=== PATIENT | female | born 2000 | race African-American/Black ===

== ENCOUNTER 2020-09-15 14:37 | Emergency (ER) | payer BC, SELFPAY ==
--- NOTE | ~2020-09-15 | CT_ITS ---
EXAMINATION: CT ABDOMEN AND PELVIS WITH CONTRAST CLINICAL INFORMATION: Right lower quadrant pain COMPARISON: None TECHNIQUE: Multidetector volumetric images were obtained from the superior aspect of the liver through the pubic symphysis following administration 85 mL of Omnipaque 350 intravenous contrast. Sagittal and coronal reformatted images were obtained on the technologist's workstation. Oral contrast: No This CT examination was performed using dose optimization techniques as appropriate, variously including the following: *Automated exposure control *Adjustment of mA and/or kV according to patient size (this includes techniques or standardized protocols for targeted exams where dose is matched to indication/reason for exam; i.e. extremities or head) *Use of iterative reconstruction technique DLP: 409 mGy-cm FINDINGS: LUNG BASES: The visualized lung bases are unremarkable. LIVER, GALLBLADDER, AND BILIARY TREE: The liver is normal in size, shape, and attenuation. 2 tiny hypodensity seen in the right lobe of the liver the largest measuring only 5 mm and measures water density consistent with a cyst. No worrisome focal hepatic lesion or biliary ductal dilatation is present. The gallbladder is unremarkable with no evidence of radiopaque gallstones, gallbladder wall thickening, or obvious pericholecystic inflammatory changes. PANCREAS: Unremarkable. SPLEEN: Unremarkable. ADRENAL GLANDS: Unremarkable. KIDNEYS AND URETERS: The kidneys are normal in size, shape, and attenuation. No hydronephrosis, hydroureter, or calculi seen. No perinephric stranding. BLADDER: Unremarkable. GASTROINTESTINAL TRACT: The small and large bowel are unremarkable. The appendix is unremarkable. ABDOMINAL WALL: No significant hernia is appreciated. LYMPH NODES: Normal. VASCULAR: Unremarkable. PELVIC VISCERA: A large cyst is present in the pelvis anterior to the uterus measuring 8.3 x 8.5 x 7.3 cm. A small amount of free intraperitoneal fluid is present. The uterus is pushed backwards by this large cyst. No inflammatory changes are seen around this to suggest a tubo-ovarian abscess. OSSEOUS STRUCTURES: Unremarkable. CT/CT abdomen pelvis w con IMPRESSION: The appendix is normal. Incidentally noted tiny hepatic cysts Large ovarian cyst. In premenopausal patients with cysts >7 cm in diameter, follow-up MRI is recommended. Recommend follow-up pelvic MRI with IV contrast or surgical evaluation (based on 2010 SRU Consensus Conference Statement on the Management of Asymptomatic Ovarian and Other Adnexal Cysts Imaged at [facility]: Radiology 2009;256(3):943-54).
[2020-09-15 16:32] VITALS: BP 113/75; PULSE 88; RESP 18; TEMP 37.1; O2SAT 100; BMI 26.9
[2020-09-15 17:05] LABS: MANUAL DIFF FLAG NO
[2020-09-15 17:10] LABS: Basophils Percent Auto 0.6 % (0-2); Hematocrit 38.2 % (37-47); Hemoglobin 12.4 g/dl (12.0-16.0); Imm Gran Abs Auto 0.01 X10*3/uL (0.00-0.03); Imm Gran Pct Auto 0.1 % (0.0-0.4); Lymphocytes Absolute Auto 0.9 X10*3/uL (1.2-4.9); Lymphocytes Percent Auto 12.6 % (20-40); Mean Corpuscular HGB Conc 32.5 g/dl (31.0-35.0); Mean Corpuscular Hemoglobin 27.2 pg (27.0-33.0); Mean Corpuscular Volume 83.8 fL (80-98); Mean Platelet Volume 10.1 fL (9.4-12.3); Monocytes Absolute Auto 0.4 X10*3/uL (0.1-1.2); Monocytes Percent Auto 5.9 % (2-11); Neutrophils Absolute Auto 5.8 X10*3/uL (2.0-8.3); Neutrophils Percent Auto 80.8 % (45-73); Platelet Count 332 X10*3/uL (160-400); Red Blood Count 4.56 X10*6/uL (4.20-5.50); Red Cell Distribution Width 13.7 % (11.0-16.0); White Blood Count 7.2 X10*3/uL (4.8-10.8)
[2020-09-15 17:13] LABS: Appearance Urine CLEAR; Color Urine YELLOW; Glucose Urine UA NEG (NEG); Leukocyte Esterase Urine NEG (NEG); Nitrite Urine NEG (NEG); Specific Gravity - Urine 1.025 (1.005-1.025); Urine Blood 3+ (NEG); Urine Ketones NEG (NEG); Urine Protein NEG (NEG-TRACE)
[2020-09-15 17:16] LABS: UPreg QC Valid YES; Urine Pregnancy NEGATIVE (NEGATIVE)
[2020-09-15 17:31] LABS: WBC Urine 0-2 /HPF (0-4)
[2020-09-15 17:32] LABS: RBC Urine 50-75 /HPF (0); Squamous Epithelial Cell Urine 1+ /LPF
[2020-09-15 17:51] LABS: Alanine Aminotransferase 19 U/L (0-31); Albumin Level 4.6 g/dL (3.5-5.0); Alkaline Phosphatase 54 U/L (39-117); Anion Gap 12 (12-20); Aspartate Amino Transferase 34 U/L (5-31); Bilirubin Total 0.7 mg/dL (0.0-1.0); Blood Urea Nitrogen 8 mg/dL (9-16); Calcium 9.4 mg/dL (8.4-10.2); Carbon Dioxide 26 mmol/L (22-29); Chloride 104 mmol/L (96-108); Creatinine Clr Calc Pharmacy 94.5; Estimated Glomerular Filt Rate > 60; Glucose Random 97 mg/dL (60-115); Lipase 21 U/L (8-78); Potassium 4.4 mmol/L (3.3-5.1); Sodium 138 mmol/L (135-145); Total Protein 7.7 g/dL (6.5-8.0)
--- NOTE | 2020-09-15 19:45 | ED_ITS ---
HPI - Abdominal Pain General Chief Complaint: Abdominal Pain Stated Complaint: pain on rt side ?appendicitis from dr office Time Seen by Provider: 09/15/20 18:51 Source: patient Mode of arrival: ambulatory Limitations: no limitations History of Present Illness HPI narrative: 20-year-old female with no significant past medical history presents with 1 day of 10/10 right lower quadrant abdominal pain with nausea and vomiting. She does not report any chest pain or pressure, palpitations, fevers, chills, abdominal distention, dysuria, hematuria, edema, trauma, vaginal discharge, abnormal vaginal bleeding, or any other concerning symptoms. MD elicited complaint: abdominal pain Onset (ago): day(s) (1) Pain Consistency: intermittent Location: RLQ and suprapubic Severity: severe Pain scale (0-10): 10 Quality: cramping, stabbing and aching Migration to: no migration Exacerbating factors: bowel movement, vomiting and movement Relieving factors: rest Associated symptoms: nausea and vomiting Treatments prior to arrival: NSAIDs Related Data Patient : No Previous Rx's Medication Instructions Recorded ibuprofen 600 mg PO Q6H PRN #60 tab 09/15/20 tramadol 50 mg PO BID PRN #5 tab 09/15/20 Allergies Allergy/AdvReac Type Severity Reaction Status Date / Time No Known Allergies Allergy Verified 09/15/20 16:32 Review of Systems Review of Systems Constitutional: No Weight loss, No Fever, No Chills, No Night Sweats, No F atigue, No Malaise ENT/Mouth: No Hearing loss, No Ear Pain, No Nasal Congestion, No Sinus Pain, No Hoarseness, No sore throat, No Rhinorrhea, No Swallowing Difficulty Eyes: No Eye Pain, No Swelling, No Redness, No Foreign Body, No Discharge, No Vision Changes Cardiovascular: No Chest Pain, No SOB, No Dyspnea on Exertion, No Orthopnea, No Edema, No Palpitations Respiratory: No Cough, No Sputum, No Wheezing, No Smoke Exposure, No Dyspnea Gastrointestinal: Positive Nausea, Positive Vomiting, positive abdominal Pain, No Hematochezia, No Melena Genitourinary: no irregular bleeding, No Dysuria, No Urinary Frequency, No Hematuria, No Urinary Incontinence, No Urgency, No Flank Pain, No Urinary Flow Changes, No Hesitancy Musculoskeletal: No joint pain, No Myalgias, No Joint Swelling Skin: No Skin Lesions, No rash Neuro: No Weakness, No Numbness, No Paresthesias, No Loss of Consciousness, No Dizziness, No Headache Psych: No Anxiety/Panic, No Depression, No SI/HI/AH/VH, No Social Issues Heme/Lymph: No Bruising, No Bleeding,No Lymphadenopathy Endocrine: No Polyuria, No Polydipsia, No Temperature Intolerance Yes all other systems are reviewed and are negative Physical Exam Vital Signs: Vital Signs: Last Vital Signs Temp 97.7 F 09/15/20 22:16 Pulse 76 09/15/20 22:16 Resp 20 09/15/20 22:16 BP 135/79 09/15/20 22:16 Pulse Ox 100 09/15/20 22:16 Body Mass Index 26.9 Appearance: Alert. Oriented X3. Mild distress. Eyes: Pupils equal, round and reactive to light. EOMI, sclera nonicteric ENT: Pharynx normal. Moist mucous membranes Neck: Normal inspection. Neck supple. No JVD CVS: Normal heart rate and rhythm. Pulses normal. Respiratory: No respiratory distress. Breath sounds normal. Abdomen: Soft and tender to palpation to the right lower left lower and suprapubic, no CVA tenderness. Skin: Skin warm and dry. Normal skin color. Normal skin turgor. Extremities: No lower extremity edema. Neuro: No motor deficit. No sensory deficit. Cranial nerves 2-12 intact, gait well-balanced well coordinated Course Course Course Narrative: 20-year-old female with no significant past medical history presents with 1 day of 10/10 abdominal pain accompanied with nausea and vomiting. Physical exam is positive for McBurney's, negative psoas, Rovsing and Mackay's. Tenderness to the suprapubic. Plan of care is for CT scan of the abdomen. CT scan shows large anterior to the uterus suspected ovarian cyst. Discussion with Dr. Nguyen the entire attacks, feels that this is an ovarian cyst and refer to trial court judge. Discussion with Dr. Magaña, patient is hemodynamically stable, can be managed as a surgical outpatient, and will be followed up in the office tomorrow. Detailed description with mother as well as patient regarding plan of care. Incidental findings of hepatic cysts discussed with both patient and mother. Patient verbalized understanding of and agrees to plan of care discharge home. Consultations Consultation #1: Mazzucco Time: 21:22 Consultation #2: Archana Time: 21:25 MDM - Abdominal Pain Differential Diagnosis Differential diagnosis: Likely abdominal pain, acute appendicitis, calculus of kidney, constipation, diverticulitis, endometriosis and ovarian cyst Medical Records Attestation: I reviewed the patient's medical records. Lab Data Attestation: I reviewed the patient's lab results. Result diagrams: 09/15/20 16:49 09/15/20 16:49 Labs: Lab Results 09/15/20 09/15/20 09/15/20 Range/Units 16:49 16:49 16:49 WBC 7.2 (4.8-10.8) X10*3/uL RBC 4.56 (4.20-5.50) X10*6/uL Hgb 12.4 (12.0-16.0) g/dl Hct 38.2 (37-47) % MCV 83.8 (80-98) fL MCH 27.2 (27.0-33.0) pg MCHC 32.5 (31.0-35.0) g/dl RDW 13.7 (11.0-16.0) % Plt Count 332 (160-400) X10*3/uL MPV 10.1 (9.4-12.3) fL Immature Gran % (Auto) 0.1 (0.0-0.4) % Neut % (Auto) 80.8 H (45-73) % Lymph % (Auto) 12.6 L (20-40) % [place] % (Auto) 5.9 (2-11) % Eos % (Auto) 0.0 (0-4) % Baso % (Auto) 0.6 (0-2) % Lymph # (Auto) 0.9 L (1.2-4.9) X10*3/uL [place] # (Auto) 0.4 (0.1-1.2) X10*3/uL Eos # (Auto) 0.0 (0.0-0.4) X10*3/uL Baso # (Auto) 0.0 (0.0-0.2) X10*3/uL Abs Immat Gran (auto) 0.01 (0.00-0.03) X10*3/uL Absolute Neuts (auto) 5.8 (2.0-8.3) X10*3/uL Absolute Nucleated RBC 0.000 (0.0-0.012) X10*3/uL Nucleated RBC % (auto) 0.0 (0.0-0.2) /100WBC Hold Blue Top SEE NOTE Sodium (135-145) mmol/L Potassium (3.3-5.1) mmol/L Chloride (96-108) mmol/L Carbon Dioxide (22-29) mmol/L Anion Gap (12-20) BUN (9-16) mg/dL Creatinine (0.5-1.4) mg/dL Estim Creat Clear Calc Estimated GFR Random Glucose (60-115) mg/dL Calcium (8.4-10.2) mg/dL Total Bilirubin (0.0-1.0) mg/dL AST (5-31) U/L ALT (0-31) U/L Alkaline Phosphatase (39-117) U/L Total Protein (6.5-8.0) g/dL Albumin (3.5-5.0) g/dL Lipase (8-78) U/L Urine Color YELLOW Urine Appearance CLEAR Urine pH 6.0 (5.0-8.0) Ur Specific [place] 1.025 (1.005-1.025) Urine Protein NEG (NEG-TRACE) MG/DL Urine Glucose (UA) NEG (NEG) MG/DL Urine Ketones NEG (NEG) MG/DL Urine Blood 3+ H (NEG) Urine Nitrite NEG (NEG) Ur Leukocyte Esterase NEG (NEG) Urine RBC 50-75 H (0) /HPF Urine WBC 0-2 (0-4) /HPF Ur Squamous Epith Cells 1+ /LPF Urine Bacteria NONE /LPF Urine Test (NEGATIVE) 09/15/20 09/15/20 Range/Units 16:49 16:49 WBC (4.8-10.8) X10*3/uL RBC (4.20-5.50) X10*6/uL Hgb (12.0-16.0) g/dl Hct (37-47) % MCV (80-98) fL MCH (27.0-33.0) pg MCHC (31.0-35.0) g/dl RDW (11.0-16.0) % Plt Count (160-400) X10*3/uL MPV (9.4-12.3) fL Immature Gran % (Auto) (0.0-0.4) % Neut % (Auto) (45-73) % Lymph % (Auto) (20-40) % [place] % (Auto) (2-11) % Eos % (Auto) (0-4) % Baso % (Auto) (0-2) % Lymph # (Auto) (1.2-4.9) X10*3/uL [place] # (Auto) (0.1-1.2) X10*3/uL Eos # (Auto) (0.0-0.4) X10*3/uL Baso # (Auto) (0.0-0.2) X10*3/uL Abs Immat Gran (auto) (0.00-0.03) X10*3/uL Absolute Neuts (auto) (2.0-8.3) X10*3/uL Absolute Nucleated RBC (0.0-0.012) X10*3/uL Nucleated RBC % (auto) (0.0-0.2) /100WBC Hold Blue Top Sodium 138 (135-145) mmol/L Potassium 4.4 (3.3-5.1) mmol/L Chloride 104 (96-108) mmol/L Carbon Dioxide 26 (22-29) mmol/L Anion Gap 12 (12-20) BUN 8 L (9-16) mg/dL Creatinine 0.85 (0.5-1.4) mg/dL Estim Creat Clear Calc 94.5 Estimated GFR > 60 Random Glucose 97 (60-115) mg/dL Calcium 9.4 (8.4-10.2) mg/dL Total Bilirubin 0.7 (0.0-1.0) mg/dL AST 34 H (5-31) U/L ALT 19 (0-31) U/L Alkaline Phosphatase 54 (39-117) U/L Total Protein 7.7 (6.5-8.0) g/dL Albumin 4.6 (3.5-5.0) g/dL Lipase 21 (8-78) U/L Urine Color Urine Appearance Urine pH (5.0-8.0) Ur Specific [place] (1.005-1.025) Urine Protein (NEG-TRACE) MG/DL Urine Glucose (UA) (NEG) MG/DL Urine Ketones (NEG) MG/DL Urine Blood (NEG) Urine Nitrite (NEG) Ur Leukocyte Esterase (NEG) Urine RBC (0) /HPF Urine WBC (0-4) /HPF Ur Squamous Epith Cells /LPF Urine Bacteria /LPF Urine Test NEGATIVE (NEGATIVE) Imaging Data CT scan - abdomen: Attestation: I personally reviewed and interpreted this imaging study as follows: Radiologist's impression: EXAMINATION: CT ABDOMEN AND PELVIS WITH CONTRAST CLINICAL INFORMATION: Right lower quadrant pain COMPARISON: None TECHNIQUE: Multidetector volumetric images were obtained from the superior aspect of the liver through the pubic symphysis following administration 85 mL of Omnipaque 350 intravenous contrast. Sagittal and coronal reformatted images were obtained on the technologist's workstation. Oral contrast: No This CT examination was performed using dose optimization techniques as appropriate, variously including the following: *Automated exposure control *Adjustment of mA and/or kV according to patient size (this includes techniques or standardized protocols for targeted exams where dose is matched to indication/reason for exam; i.e. extremities or head) *Use of iterative reconstruction technique DLP: 409 mGy-cm FINDINGS: LUNG BASES: The visualized lung bases are unremarkable. LIVER, GALLBLADDER, AND BILIARY TREE: The liver is normal in size, shape, and attenuation. 2 tiny hypodensity seen in the right lobe of the liver the largest measuring only 5 mm and measures water density consistent with a cyst. No worrisome focal hepatic lesion or biliary ductal dilatation is present. The gallbladder is unremarkable with no evidence of radiopaque gallstones, gallbladder wall thickening, or obvious pericholecystic inflammatory changes. PANCREAS: Unremarkable. SPLEEN: Unremarkable. ADRENAL GLANDS: Unremarkable. KIDNEYS AND URETERS: The kidneys are normal in size, shape, and attenuation. No hydronephrosis, hydroureter, or calculi seen. No perinephric stranding. BLADDER: Unremarkable. GASTROINTESTINAL TRACT: The small and large bowel are unremarkable. The appendix is unremarkable. ABDOMINAL WALL: No significant hernia is appreciated. LYMPH NODES: Normal. VASCULAR: Unremarkable. PELVIC VISCERA: A large cyst is present in the pelvis anterior to the uterus measuring 8.3 x 8.5 x 7.3 cm. A small amount of free intraperitoneal fluid is present. The uterus is pushed backwards by this large cyst. No inflammatory changes are seen around this to suggest a tubo-ovarian abscess. OSSEOUS STRUCTURES: Unremarkable. CT/CT abdomen pelvis w con IMPRESSION: The appendix is normal. Incidentally noted tiny hepatic cysts Large ovarian cyst. In premenopausal patients with cysts >7 cm in diameter, follow-up MRI is recommended. Recommend follow-up pelvic MRI with IV contrast or surgical evaluation (based on 2010 SRU Consensus Conference Statement on the Management of Asymptomatic Ovarian and Other Adnexal Cysts Imaged at [facility]: Radiology 2009;256(3):943-54). Discharge Plan Discharge Clinical Impression: Ovarian cyst Patient Disposition: Home, Self-Care Instructions: Ovarian Cyst (ED) Additional Instructions: You were evaluated for abdominal pain. CT scan of the abdomen shows a large ovarian cyst measuring 8.3 cm x 8.5 cm x 7.3 cm. I discussed her case with OBGYN on-call Dr. Magaña, please call her tomorrow for further workup. Incidental finding in the abdominal CT scan are hepatic cysts. Please follow-up with primary care as you may need to continue to monitor the cysts. Please take ibuprofen as needed for pain management. If ibuprofen is insufficient please use tramadol. Tramadol is a narcotic and has high risk for addiction and abuse. Do not drive or operate machinery while taking this medication. This medication may cause drowsiness, increased risk of falls and cause constipation. Drink plenty of fluids, use MiraLax and or Colace as needed to help soften stools. Thank you for choosing this emergency department for evaluation. Please fo llow-up with primary care physician as needed. Return to the emergency department for any new, concerning, or worsening symptoms. Prescriptions: New ibuprofen 600 mg tablet 600 mg PO Q6H PRN (Reason: pain) Qty: 60 RF: 0 tramadol 50 mg tablet 50 mg PO BID PRN (Reason: pain) Qty: 5 RF: 0 Referrals: Fiorella Magaña MD [Physician] - 2 days (large ovarian cyst) Interventions: ED Discharge Assessment Last Done: 09/15/20 22:26 Discharge Date/Time: 09/15/20 22:27 [facility] Past Medical History Attestation statement: The following information was validated with the patient. Source: old records reviewed Medical History Healthy female Social History Social History Advance Directives: No Advance Directives Information Provided: No
[2020-09-15 19:50] VITALS: BP 119/86; PULSE 82; RESP 20; TEMP 37.5; O2SAT 99
[2020-09-15] MEDS: iohexoL 350 MG/ML 100 ML INFUS..BTL IV (20:20)
[2020-09-15] MEDS: 0.9 % Sodium Chloride 1,000 ML 999 ML IVCONT (20:27)
[2020-09-15 20:50] VITALS: BP 130/78; PULSE 90; RESP 20; TEMP 36.6; O2SAT 97
[2020-09-15 22:16] VITALS: BP 135/79; PULSE 76; RESP 20; TEMP 36.5; O2SAT 100
== END 2020-09-15 22:27 | disposition home or self-care (01) ==
PROVIDERS: Emergency Provider Student in an Organized Health Care Education/Training Program; PCP Pediatrics
DX: N83.201 Unspecified ovarian cyst, right side (principal); R10.31 Right lower quadrant pain; R11.2 Nausea with vomiting, unspecified; R93.5 Abnormal findings on diagnostic imaging of other abdominal regions, including retroperitoneum; K76.89 Other specified diseases of liver
CPT/HCPCS: 36415; 74177; 80053; 81001; 81025; 83690; 85025; 96360; 99284; Q9967

== ENCOUNTER → 2020-09-17 14:54 | Outpatient (BNVA) | payer BC, SELFPAY | PROVIDERS: PCP Pediatrics; Visit Provider Obstetrics & Gynecology ==

== ENCOUNTER 2020-09-24 16:28 | Outpatient (REF) | payer BC, SELFPAY ==
--- NOTE | ~2020-09-24 | MR_ITS ---
EXAMINATION: MR PELVIS WITHOUT AND WITH CONTRAST CLINICAL INFORMATION: 20-year-old female with right lower quadrant pain. Recent CT notes large cyst central pelvis 8.5 cm in greatest dimension. COMPARISON: CT abdomen and pelvis with contrast 09/15/2020. TECHNIQUE: MR pelvis is performed without and with use of 7 mL Gadavist gadolinium contrast. Imaging performed in 3 planes. Post contrast imaging in -axial plane. FINDINGS: There is a large unilocular cyst in the central pelvis corresponding to the adnexal mass on recent CT 09/15/2020. The cyst measures 7.8 x 6.1 x 6.6 cm and has smooth uniform thin capsule and no internal complexity. There is no solid component or internal septation. There is no fluid-fluid level or enhancement following gadolinium. The uterus is displaced posteriorly and slightly towards the right. The uterus is normal in size measuring 8.3 x 3.5 x 3.6 cm. The double wall endometrial thickness is 8 mm and there is normal uniform junctional zone. There is no fibroid or myometrial cyst. The tetlin right ovary is believed to be present adjacent to the posterior upper right aspect of the unilocular cyst and measures approximately 2.0 x 1.9 cm. The left ovary measures 3.4 x 2.0 x 2.4 cm and has an incidental dominant follicle measuring 2.0 x 1.5 cm. There is mild fluid in the cul-de-sac. No significant ascites. The urinary bladder is unremarkable. There is no bowel obstruction or inflammatory changes seen in the bowel or mesentery. Recent CT shows normal appendix. There is normal marrow signal. There is no lymphadenopathy or inguinal hernia. MR/MR pelvis wo/w con IMPRESSION: 1. Unilocular follicular cyst central pelvis measuring 7.8 x 6.1 x 6.6 cm. 2. Incidental dominant follicle left ovary 2.0 cm. Trace pelvic ascites. Normal uterus. 3. Suggest follow-up imaging with ultrasound in 3-6 months.
== END 2020-09-24 16:29 | disposition home or self-care (01) ==
LOC: HO.MRI 16:28
PROVIDERS: Visit Provider Obstetrics & Gynecology
DX: R19.00 Intra-abdominal and pelvic swelling, mass and lump, unspecified site (principal)
CPT/HCPCS: 72197; A9585

== ENCOUNTER → 2020-10-03 12:02 | Outpatient (BNVA) | payer BC, SELFPAY | PROVIDERS: PCP Pediatrics; Visit Provider Obstetrics & Gynecology ==

== ENCOUNTER 2020-12-29 10:59 | Outpatient (REF) | payer BC, SELFPAY ==
--- NOTE | ~2020-12-29 | US_ITS ---
EXAMINATION: US PELVIS CLINICAL INFORMATION: Follow-up ovarian cyst COMPARISON: MR pelvis with a follicular cyst in the pelvis measuring 7.8 cm. TECHNIQUE: Ultrasound of the pelvis is performed using both transabdominal and transvaginal transducers along with Doppler. Transvaginal imaging is performed due to inadequate visualization transabdominally. FINDINGS: Uterus: Uterus is retroverted measuring 7.0 cm in length, 3.5 cm in AP and 4.3 cm in transverse dimension. The endometrial thickness is 0.3 cm. Is no focal lesion seen in the uterus. Adnexa: The right ovary measures 3.3 x 3.3 x 1.8 cm and volume 10.3 cm. There is no focal lesion seen. The left ovary measures 3.0 3.8 x 1.9 cm and volume 11.3 cm. It appears unremarkable. US/US pelvic complete IMPRESSION: No ovarian cyst seen at this time. There is no free fluid in the pelvis
== END 2020-12-29 11:00 | disposition home or self-care (01) ==
LOC: HO.US 10:59
PROVIDERS: Visit Provider Obstetrics & Gynecology
DX: N83.201 Unspecified ovarian cyst, right side (principal)
CPT/HCPCS: 76856

== ENCOUNTER → 2021-01-06 10:42 | Outpatient (BNVA) | payer BC, SELFPAY | PROVIDERS: PCP Pediatrics; Visit Provider Obstetrics & Gynecology ==